=== PATIENT | male | born 1990 | race African-American/Black ===

== ENCOUNTER 2025-11-09 18:27 | Emergency (ER) | payer MEDICAID, SELFPAY ==
[2025-11-09 19:21] VITALS: BP 119/83; PULSE 89; RESP 18; TEMP 36.4; O2SAT 99; BMI 22.8
--- NOTE | 2025-11-09 21:02 | PC.NURSE ---
HEARD PT ASKING SECURITY HOW TO GET TO [address].
--- NOTE | 2025-11-09 21:03 | PD.EDRME ---
Rapid Medical Screening Exam RME Arrival date/time: 11/09/25 18:27 35M with no significant PMH presents to ED with depression and sadness after sister recently passed. Patient denies SI/HI and feels safe at home. Chief Complaint: Depression Time Seen by Provider: 11/09/25 19:29 Vital signs: Vital Signs Temperature 97.6 F 11/09/25 19:21 Pulse Rate 89 11/09/25 19:21 Respiratory Rate 18 11/09/25 19:21 Blood Pressure 119/83 11/09/25 19:21 Pulse Oximetry (%) 99 11/09/25 19:21 Oxygen Delivery Method Room Air 11/09/25 19:21 Exam: Unremarkable. Clinical Impression: psych vs stress reaction vs depression
--- NOTE | 2025-11-09 21:07 | PC.NURSE ---
NO ANSWER AT ER LOBBY OR OUTSIDE ER.
== END 2025-11-09 21:08 | disposition left against medical advice (07) ==
LOC: SERX 19:40
PROVIDERS: Emergency Provider Emergency Medicine
DX: F32.A Depression, unspecified (principal); Z53.29 Procedure and treatment not carried out because of patient's decision for other reasons
CPT/HCPCS: 99281